=== PATIENT | female | born 1995 | race African-American/Black ===

== ENCOUNTER 2017-12-30 | Emergency (ER) | payer OTHER ==
[2017-12-30] MEDS: HYDROCODONE/APAP (5/325) TAB PO (00:20)
[2017-12-30] MEDS: LORAZEPAM 1 MG TAB PO (00:20)
== END 2017-12-30 00:50 | disposition home or self-care (01) ==
LOC: FTE
DX: K08.89 Other specified disorders of teeth and supporting structures (principal)
CPT/HCPCS: 99283; Z7502

== ENCOUNTER 2017-12-30 16:45 | Emergency (ER) | payer OTHER | END 2017-12-30 17:45 | disposition left against medical advice (07) | LOC: FTE 16:45 | DX: K08.89 Other specified disorders of teeth and supporting structures (principal) | CPT/HCPCS: 99283; Z7502 ==